=== PATIENT | male | born 1970 ===

== ENCOUNTER → 2023-11-04 06:15 | Day surgery (SDC) | payer BC, SELFPAY | LOC: GI 06:15 | PROVIDERS: ATTENDING PHYSICIAN Internal Medicine Gastroenterology | DX: Z12.11 Encounter for screening for malignant neoplasm of colon (principal); K64.8 Other hemorrhoids; K57.30 Diverticulosis of large intestine without perforation or abscess without bleeding; K63.5 Polyp of colon; D12.2 Benign neoplasm of ascending colon | CPT/HCPCS: 45385; 88305 ==